=== PATIENT | female | born 1985 | race Caucasian/White ===

== ENCOUNTER 2022-10-19 23:18 | Emergency (ER) | payer OTHER ==
[2022-10-20] MEDS ORDERED: cephALEXin 250 MG CAPSULE PO STA (00:09)
[2022-10-20] MEDS ORDERED: CEPHALEXIN 250 MG Prepack 8 CAP BOTTLE PO STA (00:09)
--- NOTE | 2022-10-20 00:13 | ED Physician Documentation ---
History of Present Illness - Stated complaint Stated Complaint: BREAST PX - Chief complaint Chief Complaint: General - Additonal information Additional information: patient 37-year-old female presenting with left breast tenderness. [place] in creased swelling, pain and left breast tenderness. Is currently nursing a 6-month-old. Subjective chills at home but no fever. Denies chest pain or shortness of breath. Denies allergies to medications. Review of Systems Constitutional: reports: Chills. denies: Fever Eyes: denies: Loss of vision Ears: denies: Loss of hearing Nose: denies: Rhinorrhea / runny nose Throat: denies: Dental pain / toothache Cardiac: denies: Chest pain / pressure Respiratory: denies: Dyspnea GI: denies: Abdominal Pain PD PAST MEDICAL HISTORY - Present Medications Home Medications: Ambulatory Orders Medication Instructions Recorded Confirmed cephALEXin [Keflex] 500 mg PO Q6H #20 cap 10/20/22 - Allergies Allergies/Adverse Reactions: Allergies Allergy/AdvReac Type Severity Reaction Status Date / Time No Known Drug Allergies Allergy Verified 10/19/22 23:33 PD ED PE NORMAL - Vitals Vital signs reviewed: Yes - General General: Alert and oriented X 3 - HEENT HEENT: Atraumatic - Respiratory Respiratory: No respiratory distress PD ED PE EXPANDED - General General: Other (Breast exam performed with field contact person present. Tenderness and erythema without rubor to the left lower quadrant of the left breast. No skin changes. No expression from the nipple.) Results - Vitals Vitals: Vital Signs - 24 hr 10/19/22 10/19/22 23:20 23:29 Temperature 37.0 C Heart Rate 116 H Respiratory 16 Rate Blood Pressure 100/61 O2 Saturation 97 18 L Oxygen O2 Source Room air PD Medical Decision Making - ED course Complexity details: reviewed results, d/w patient ED course: No associated axillary adenopathy. Patient 37-year-old female presenting to the emergency department with breast tenderness. She is currently breast- feeding. Low level tachycardia that resolved shortly after arrival to the emergency department. Afebrile. Otherwise well-appearing. Breast exam performed with field contact person present demonstrated some tenderness and erythema without rubor to the left lower breast. No palpable masses. No indications of breast abscess. No skin coloring, dimpling, expression from the nipple, while the overall which. No ipsilateral axillary adenopathy. Will initiate course of Keflex. Instructions for use ice packs, acetaminophen, continued feeding/pump and dump given.Encourage follow-up with primary care. Clear return precautions given. Departure - Departure Disposition: 01 Home, Self Care Clinical Impression: Mastitis Instructions: ED Breast Infec Prescriptions: cephALEXin [Keflex] 500 mg PO Q6H #20 cap Comments: Thank you for allowing us to care for you today [facility]. Today in the emergency department you were diagnosed with mastitis. Attached in your discharge instructions you will find a prescription for an oral antibiotic and like you to begin taking. Attached some information about mastitis. Ice packs and Tylenol can be used at home for pain control and help decrease swelling. It is recommended that you continue to either breast-feed or pump and dump for the duration of your infection. If it anytime you develop any new or worsening symptoms please return to the emergency department. Elsewise I do recommend following up with your primary care doctor when able. Again if it anytime you develop any new or worsening symptoms please not hesitate to return.
[2022-10-20 00:37] VITALS: BP 107/60; O2SAT 97
== END 2022-10-20 00:32 | disposition home or self-care (01) ==
LOC: ED 10-20 00:01
DX: N61.0 Mastitis without abscess (principal)
CPT/HCPCS: 99282; 99283; A9270